=== PATIENT | male | born 1970 ===

== ENCOUNTER 2017-03-07 11:22 | Day surgery (SDC) | payer OTHER, MEDICAID ==
--- NOTE | 2017-03-07 11:46 | CPEKG ---
Heart Rate: 93 RR Interval: 645 P-R Interval: 120 QRSD Interval: 76 QT Interval: 368 QTC Interval: 458 P [place]: 59 QRS [place]: 39 T Wave [place]: 34 EKG Severity - NORMAL ECG - EKG Impression: SINUS RHYTHM Electronically Signed By: Ruperto Ramirez 08-Mar-2017 06:37:53
[2017-03-07] MEDS ORDERED: LR 1,000 ML IV ONE (11:55)
[2017-03-07] MEDS ORDERED: MIDAZOLAM 2 MG/2 ML VIAL ONE (12:56)
[2017-03-07] MEDS ORDERED: fentaNYL 100 MCG/2 ML INJ ONE (13:01)
--- NOTE | 2017-03-07 13:50 | GPN ---
[f rep st] PROCEDURE NOTE DATE OF PROCEDURE: 03/07/2017 PROCEDURE: Esophagogastroduodenoscopy with biopsy, balloon dilation. INDICATIONS: The patient is a 47-year-old male who presents with complaints of solid food dysphagia. CONSENT: Risks, benefits, and alternatives of the procedure were discussed in great detail with the patient. Risks of infection, bleeding, perforation, and sedation were discussed. All questions were answered. Informed consent was obtained. MEDICATIONS: Propofol. Please see Anesthesia record for details. ESTIMATED BLOOD LOSS: Insignificant. ESOPHAGOGASTRODUODENOSCOPY EXAMINATION: An Olympus upper endoscope was introduced via the mouth and advanced to the esophagus. In the mid esophagus, a mild ringed appearance was seen. Biopsies were taken to rule out eosinophilic esophagitis. At the gastroesophageal junction, a mild benign Schatzki ring was noted. This was dilated with a [address] out. Heme noted. The stomach was entered and closely examined, including retroflexed views of the angularis, cardia, and fundus. The mucosa of the antrum and body was erythematous in a patchy distribution and biopsies were taken. The duodenum and duodenal bulb were normal in appearance. IMPRESSION: 1. Stricture at the gastroesophageal junction status post dilation. 2. Biopsy taken of mid-esophagus revealing eosinophilic esophagitis. 3. Gastritis, status post biopsy. RECOMMENDATION: 1. Clear liquid diet and advance. 2. Continue previous medications. 3. Await biopsy results. /[id number]/MODL MTDD
== END 2017-03-07 14:38 | disposition home or self-care (01) ==
LOC: FSGY 11:22
PROVIDERS: ATTEND Internal Medicine Gastroenterology
PROC: 0DB68ZX Excision of Stomach, Via Natural or Artificial Opening Endoscopic, Diagnostic (ICD-10-PCS; principal; 2017-03-07 13:00)
PROC: 0D748ZZ Dilation of Esophagogastric Junction, Via Natural or Artificial Opening Endoscopic (ICD-10-PCS; principal; 2017-03-07 13:00)
PROC: 0DB28ZX Excision of Middle Esophagus, Via Natural or Artificial Opening Endoscopic, Diagnostic (ICD-10-PCS; principal; 2017-03-07 13:00)
DX: K22.2 Esophageal obstruction (principal); K20.0 Eosinophilic esophagitis; K29.70 Gastritis, unspecified, without bleeding; R13.10 Dysphagia, unspecified
CPT/HCPCS: 43239; 43249; 93005; C1726; J2250; J3010